=== PATIENT | female | born 1985 | race Caucasian/White ===

== ENCOUNTER 2019-08-04 21:15 | Emergency (ER) | payer OTHER, SELFPAY ==
[2019-08-04 21:15] VITALS: PULSE 156; RESP 26
[2019-08-04] MEDS: SODIUM CHLORIDE 0.9% 1,000 ML 1000 ML IV (21:30)
[2019-08-04] MEDS: ADENOSINE 6 MG/2 ML VIAL IV (21:31)
[2019-08-04] MEDS: ADENOSINE 6 MG/2 ML VIAL 12 MG IV (21:32)
--- NOTE | 2019-08-04 21:37 | ED_ITS ---
HPI - Arrhythmia/Palpitations General Chief Complaint: Chest Pain Stated Complaint: states rapid heart rate Time Seen by Provider: 08/04/19 21:37 Source: patient Mode of arrival: Ambulatory Limitations: no limitations History of Present Illness HPI narrative: The patient was home about 90 minutes prior to arrival. 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 She bent over she had of sudden onset of palpitations. She has a prior history PSVT. PSVT is free of severe resolve a Valsalva maneuvers. She presents here about 9 minutes later, anxious, crying, and complaining of the palpitations and chest discomfort. She has no recent fever chills. 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 She is on no blood pressure cardiac medications. She does not drink alcohol, use tobacco or drugs. She is not . She denies recent illness. She is otherwise healthy. Related Data Allergies Allergy/AdvReac Type Severity Reaction Status Date / Time No Known Drug Allergies Allergy Verified 08/04/19 21:38 Review of Systems Review of Systems ROS Unobtainable: All systems reviewed & are unremarkable except as noted in HPI and below Constitutional Constitutional: Denies chills, Denies fever(s) and Denies night sweats Comments: No recent illness ENT Ears, Nose, Mouth, and Throat: Denies dizziness Comments: No sore throat or difficulty swallowing. Cardiovascular Cardiovascular: Reports chest pain, Denies pedal edema, Reports irregular heart rhythm and Reports dyspnea Respiratory Respiratory: Denies chest congestion, Denies cough, Denies hemoptysis and Reports dyspnea Gastrointestinal Gastrointestinal: Denies abdominal pain, Denies nausea and Denies vomiting Genitourinary Comments: She is not Musculoskeletal Musculoskeletal: Denies back pain Integumentary/Breasts Skin/Breast: Denies erythema and Denies rash Neurologic Neurologic: Denies dizziness Patient History Medical History (Updated 08/04/19 @ 22:21 by Mauricio Vaca MD) Paroxysmal supraventricular tachycardia (Inactive) Surgical History (Updated 08/04/19 @ 22:21 by Mauricio Vaca MD) No significant past surgical history (Acute) Social History Smoking Status: Never smoker Exam Initial Vital Signs Initial Vital Signs: Vital Signs Pulse Rate 156 H 08/04/19 21:15 Respiratory Rate 26 H 08/04/19 21:15 Const General: cooperative and well developed Nutritional Appearance: well nourished Other: Anxious. HENMT Mouth: oral mucosae normal Throat: posterior oropharynx normal and uvula midline Neck Neck: normal visual inspection Resp Auscultation: clear to auscultation bilaterally Cardio Rate: tachycardic Rhythm: regular rhythm Heart Sounds: no click, no gallops, no murmurs and no rubs GI Inspection: non-distended Palpation: soft, no hepatosplenomegaly, No guarding, No pulsatile mass and No tender Auscultation: normal bowel sounds Back/Spine/Pelvis Back: No CVA tenderness Skin Lesions: no lesions Rashes: no rashes Neuro General: alert, oriented x3, gait normal and no focal motor deficits Speech: speech normal Motor: muscle tone normal throughout Extrem General: No no pedal edema and No no calf tenderness Psych Affect: anxious affect Course Course Course Narrative: The patient presents with PSVT, rates about 180. She complains of chest discomfort with dyspnea. This has happened to her before. An IV was established, the rhythm was confirmed with a 12 lead EKG. IV fluids were started. Adenocard 6 mg IV was given, there is no effect. The Adenocard was repeated at 12 mg. she converted to sinus tachycardia. Her rhythm progressively improved to 90s, normal sinus rhythm. She is asymptomatic. Chest x-ray labs are benign other anemia. 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 I have also advised she see her primary care doctor about anemia. Orders Ordered: ED Orders 08/04/19 21:35 Basic Metabolic Panel Stat Complete Blood Count AUTO DIFF Stat Magnesium Stat Troponin & CK Cardiac Panel Stat 08/04/19 21:38 XR chest 1V Stat EKG-12 Lead Stat Sodium Chloride (Normal Saline 0.9%) 1,000 mls @ 1,000 mls/hr IV BOLUS ONE Stop: 08/04/19 22:36 Discontinued Medications Adenosine (Adenocard) 6 mg IV NOW ONE Stop: 08/04/19 21:38 Last Admin: 08/04/19 21:31 Dose: 6 mg Documented by: ENA Adenosine (Adenocard) 12 mg IV NOW ONE Stop: 08/04/19 21:38 Last Admin: 08/04/19 21:32 Dose: 12 mg Documented by: ENA Vital Signs Vital signs: Vital Signs - 8 hr 08/04/19 21:15 08/04/19 21:40 Temperature 98.3 F Pulse Rate 156 H 119 H Respiratory Rate 26 H 20 Blood Pressure [Left Arm] 139/91 H Pulse Oximetry 99 MDM - Arrhythmia/Palpitations Lab Data Result diagrams: 08/04/19 21:35 08/04/19 21:35 Labs: Lab Results 08/04/19 08/04/19 Range/Units 21:35 21:35 WBC 13.7 H (4.5-11.0) X10^3/uL RBC 4.32 (4.0-5.2) X10^6/uL Hgb 10.3 L (12.0-16.0) g/dL Hct 32.9 L (36-46) % MCV 76.1 L (80-100) fL MCH 23.7 L (26-34) PG MCHC 31.2 (30-36) % RDW 16.0 H (11.6-14.8) % Plt Count 387 (150-400) X10^3/uL Neut % (Auto) 66.1 (50-75) % Lymph % (Auto) 25.0 (25-40) % Castro % (Auto) 7.7 (3-14) % Eos % (Auto) 0.7 L (2-4) % Baso % (Auto) 0.5 (0-2) % Neut # (Auto) 9000 H (3436-6346) /uL Lymph # (Auto) 3400 (2981-3307) /uL Castro # (Auto) 1100 H (0-900) /uL Eos # (Auto) 100 (0-450) /uL Baso # (Auto) 100 (0-100) /uL Sodium 138 (137-145) mmol/L Potassium 3.6 (3.4-5.1) mmol/L Chloride 102 (98-107) mmol/L Carbon Dioxide 27 (22-32) mmol/L BUN 8 (7-17) mg/dL Creatinine 0.70 (0.52-1.04) mg/dL Estimated GFR > 60.0 (>60) mL/min BUN/Creatinine Ratio 11.4 (6-22) Glucose 65 L (70-100) mg/dL Calcium 9.2 (8.4-10.2) mg/dL Magnesium 1.8 (1.6-2.3) mg/dL Total Creatine Kinase 38 (30-135) U/L CK-MB (CK-2) TNP CK-MB (CK-2) Rel Index TNP Troponin I < 0.012 (0.01-0.034) ng/mL Imaging Data Chest x-ray: Radiologist's Impresson: [address] [address] XRay Report Signed Patient: Hilary Duffy MMR#: [id number] : 1985Acct:[id number] Age/Sex: te of Service: 08/04/19 Loc: ED Accession Number: [id number] Procedure: XR chest 1V Ordering Provider: Mauricio Vaca MD PROCEDURE: XR CHEST 1V INDICATIONS: PSVT, CHEST PAIN TECHNIQUE: One view of the chest was acquired. COMPARISON: None. FINDINGS: Surgical changes and devices: None. Incidental note is made of a metallic body ornamentation artifact. Lungs and pleura: Lungs are clear. No pleural effusions or pneumothorax. Mediastinum: Mediastinal contours appear normal. Heart size is normal. Bones and chest wall: No suspicious bony lesions. Overlying soft tissues appear unremarkable. IMPRESSION: No acute cardiopulmonary process is seen. Dictated by: Dick Vazquez M.D. on 08/04/2019 at 21:57 Approved by: Dick Vazquez M.D. on 08/04/2019 at 21:57 Discharge Plan Departure Patient Disposition: Home Clinical Impression: Paroxysmal supraventricular tachycardia, Anemia Instructions: Anemia, DI for Paroxysmal Supraventricular Tachycardia Activity Restrictions/Additional Instructions: If you have recurrence of the rapid heartbeat, return here if necessary. Consider following up with your motorcycle assembler if you have repeated events. Your blood counts are a little low, he of anemia. Follow-up the primary care doctor to discuss treatment, and potential other studies.
[2019-08-04 21:40] VITALS: BP 139/91; PULSE 119; RESP 20; TEMP 36.8; O2SAT 99
[2019-08-04 21:44] LABS: Add Manual Diff / Slide Review NO; Basophils Absolute Auto 100 /uL (0-100); Basophils Percent Auto 0.5 % (0-2); Eosinophils Absolute Auto 100 /uL (0-450); Eosinophils Percent Auto 0.7 % (2-4); Hematocrit 32.9 % (36-46); Hemoglobin 10.3 g/dL (12.0-16.0); Lymphocytes Absolute Auto 3400 /uL (1100-4500); Mean Corpuscular HGB Conc 31.2 % (30-36); Mean Corpuscular Hemoglobin 23.7 PG (26-34); Mean Corpuscular Volume 76.1 fL (80-100); Monocytes Absolute Auto 1100 /uL (0-900); Monocytes Percent Auto 7.7 % (3-14); Neutrophils Absolute Auto 9000 /uL (1500-7000); Neutrophils Percent Auto 66.1 % (50-75); Platelet Count 387 X10^3/uL (150-400); Red Blood Cell Count 4.32 X10^6/uL (4.0-5.2); White Blood Cell Count 13.7 X10^3/uL (4.5-11.0)
[2019-08-04 21:55] LABS: BUN Creatinine Ratio 11.4 (6-22); Blood Urea Nitrogen 8 mg/dL (7-17); Calcium 9.2 mg/dL (8.4-10.2); Carbon Dioxide 27 mmol/L (22-32); Chloride 102 mmol/L (98-107); Creatine Kinase 38 U/L (30-135); Estimated Glomerular Filt Rate > 60.0 mL/min (>60); Glucose 65 mg/dL (70-100); HEMOLYSIS < 15 (0-50); Magnesium 1.8 mg/dL (1.6-2.3); Potassium 3.6 mmol/L (3.4-5.1); Sodium 138 mmol/L (137-145)
[2019-08-04 22:07] LABS: Troponin I < 0.012 ng/mL (0.01-0.034)
[2019-08-04 22:34] VITALS: BP 129/85; PULSE 104; RESP 20; O2SAT 99
--- NOTE | 2019-08-30 22:07 | PC.NURSE ---
Late entry: IV NS 1000mL finished infusing stop time 2230 hrs.
--- NOTE | 2019-09-18 14:07 | PC.NURSE ---
Late entry: IV NS 1000 ml bolus complete at 2230 hrs.
== END 2019-08-04 22:58 | disposition home or self-care (01) ==
PROVIDERS: Emergency Provider Emergency Medicine
DX: I47.1 Supraventricular tachycardia (principal); D64.9 Anemia, unspecified; R06.00 Dyspnea, unspecified
CPT/HCPCS: 36415; 71045; 80048; 82550; 83735; 84484; 85025; 93005; 96361; 96374; 99284; J0153

== ENCOUNTER 2020-08-19 11:12 | Emergency (ER) | payer OTHER, SELFPAY ==
[2020-08-19 11:23] VITALS: BP 133/86; PULSE 102; RESP 16; TEMP 36.4; O2SAT 96
[2020-08-19 11:45] LABS: Amorphous Sediment Urine 2+; Bacteria Urine Moderate (10-30); RBC Urine 1-5/HPF (0-5/HPF); WBC Urine 5-10/HPF (0-5/HPF)
[2020-08-19 11:46] LABS: Culture Indicated Urine Specimen Cultured
[2020-08-19] MEDS: KETOROLAC 60 MG/2 ML VIAL 30 MG IM (11:52)
--- NOTE | 2020-08-19 12:04 | ED.FEMALEGU ---
HPI - Female Genitourinary <JARVIS Ramires - Last Filed: 08/19/20 16:16> General Chief complaint: Urogenital-Female Stated complaint: possible kidney infection Time Seen by Provider: 08/19/20 11:22 Source: patient Mode of arrival: Ambulatory History of Present Illness HPI Narrative: 34yo female presents to the ED for concerns about a kidney infection. Patient states she has had intermittent dysuria and increased urinary frequency over the past month. She had tried drinking lots of water and taking cranberry juice but the symptoms have continued. Over the past 2-3 days she developed pain in her back, worse on left than the right. Patient is concerned she might have a kidney infection. She denies any fevers, chills, vomiting, diarrhea, chest pain, shortness of breath, or any other concerns. She denies taking any antibiotics in the past month. Denies any major medical issues. Patient states she has a history of tachycardia. Related Data Previous Rx's Medication Instructions Recorded cefpodoxime 200 mg PO BID 14 Days #28 tab 08/19/20 Allergies Allergy/AdvReac Type Severity Reaction Status Date / Time No Known Drug Allergies Allergy Verified 08/04/19 21:38 Review of Systems <JARVIS Ramires - Last Filed: 08/19/20 16:16> Review of Systems Narrative: REVIEW OF SYSTEMS: GENERAL: Denies fever. HENT: No head trauma. CARDIOVASCULAR: No chest pain. RESPIRATORY: No shortness of breath or cough. GASTROINTESTINAL: Reports intermittent nausea, see HPI. GENITOURINARY: Reports flank pain and dysuria, see HPI. Denies STI concerns. MUSCULOSKELETAL: No pain. INTEGUMENTARY: No rash. Patient History <JARVIS Ramires - Last Filed: 08/19/20 16:16> Medical History (Updated 08/19/20 @ 12:09 by JARVIS Ramires) Paroxysmal supraventricular tachycardia Surgical History (Updated 08/04/19 @ 22:21 by Mauricio Vaca MD) No significant past surgical history alcohol intake frequency: other Alcohol type: beer Last Alcoholic Drink: none Substance Use Type: does not use Exam <JARVIS Ramires - Last Filed: 08/19/20 16:16> Initial Vital Signs Initial Vital Signs: Vital Signs Temperature 97.5 F L 08/19/20 11:23 Pulse Rate 102 H 08/19/20 11:23 Respiratory Rate 16 08/19/20 11:23 Blood Pressure 133/86 08/19/20 11:23 Pulse Oximetry 96 08/19/20 11:23 PHYSICAL EXAMINATION: GENERAL: Awake and alert. HENT: Normocephalic, atraumatic. Hearing intact. Oral mucosa is pink and moist. EYES: Conjunctiva pink, sclera white, no periorbital swelling. CARDIOVASCULAR: S1 and S2 sounds normal. Regular rate and rhythm, no murmurs, clicks, or bruits. No pedal edema. RESPIRATORY: Normal respiratory rate, trachea midline, airway patent. No stridor, nasal flaring or accessory muscle use. Lungs are clear in all long without wheeze, rhonchi, or crackles. GASTROINTESTINAL: Bowel sounds normoactive. Abdomen is soft and non-tender. No organomegaly, no palpable masses. GENITALURINARY: Bilateral CVA tenderness, significantly worse on left than right. MUSCULOSKELETAL: Normal gait and coordination. Equal tone and mass bilaterally. EXTREMITIES: CMS intact. SKIN: Warm, dry, soft, appropriate color for ethnicity. No lesions, rashes, or wounds to visualized areas. NEURO: Alert and Oriented X 3. Good coordination. PSYCH: Appropriate affect and mood. <Rubia Whitaker DO - Last Filed: 08/20/20 08:03> Initial Vital Signs Initial Vital Signs: Vital Signs Temperature 97.5 F L 08/19/20 11:23 Pulse Rate 102 H 08/19/20 11:23 Respiratory Rate 16 08/19/20 11:23 Blood Pressure 133/86 08/19/20 11:23 Pulse Oximetry 96 08/19/20 11:23 Course <JARVIS Ramires - Last Filed: 08/19/20 16:16> Course Course Narrative: Patient reports pain relief after Toradol administration. Orders Ordered: Discontinued Medications Ketorolac Tromethamine (Ketorolac 60 Mg/2 Ml Vial) 30 mg IM NOW ONE Stop: 08/19/20 11:35 Last Admin: 08/19/20 11:52 Dose: 30 mg Documented by: GIOVANNI Vital Signs Vital signs: Vital Signs - 8 hr 08/19/20 11:23 08/19/20 12:12 Temperature 97.5 F L Pulse Rate 102 H 106 H Respiratory Rate 16 Blood Pressure 133/86 136/75 Pulse Oximetry 96 100 <Rubia Whitaker DO - Last Filed: 08/20/20 08:03> Orders Ordered: Discontinued Medications Ketorolac Tromethamine (Ketorolac 60 Mg/2 Ml Vial) 30 mg IM NOW ONE Stop: 08/19/20 11:35 Last Admin: 08/19/20 11:52 Dose: 30 mg Documented by: GIOVANNI Vital Signs Vital signs: Vital Signs - 8 hr 08/19/20 11:23 08/19/20 12:12 Temperature 97.5 F L Pulse Rate 102 H 106 H Respiratory Rate 16 Blood Pressure 133/86 136/75 Pulse Oximetry 96 100 MDM - Female Genitourinary <JARVIS Ramires - Last Filed: 08/19/20 16:16> Medical Records Attestation: I reviewed the patient's medical records. Lab Data Attestation: I reviewed the patient's lab results. Labs: Lab Results 08/19/20 Range/Units 11:37 Urine RBC 1-5/hpf (0-5/HPF) Urine WBC 5-10/hpf H (0-5/HPF) Amorphous Sediment 2+ Urine Bacteria Moderate (10-30) H (None) Ur Culture Indicated? Specimen cultured MDM Narrative Medical decision making narrative: History and examination concerning for pyelonephritis given dysuria and CVA tenderness. Patient has bacteria on microscopic study. She was started on cefpodoxime and given Toradol IM in the clinic. Patient does have some tachycardia upon admission. However, she states she has a history of a fast heart rate, upon review of charts her heart rate appears to be 100-110 at baseline. I am less concern for sepsis at this time due to baseline heart rate, patient is afebrile, well-appearing, hemodynamically stable, no history of kidney issues. She is able to eat and drink fluids without any vomiting. She was encouraged to follow up with her PCP in the next 1-2 weeks for further evaluation. Return precautions given for new worsening symptoms. Patient agreed to plan of care verbalized understanding. <Rubia Whitaker DO - Last Filed: 08/20/20 08:03> Lab Data Labs: Lab Results 08/19/20 Range/Units 11:37 Urine RBC 1-5/hpf (0-5/HPF) Urine WBC 5-10/hpf H (0-5/HPF) Amorphous Sediment 2+ Urine Bacteria Moderate (10-30) H (None) Ur Culture Indicated? Specimen cultured Discharge Plan Departure Patient Disposition: Home Clinical Impression: Pyelonephritis Instructions: DI for Kidney Infection Activity Restrictions/Additional Instructions: Thank you for entrusting me with your care today. As discussed, it appears you have a kidney infection. I prescribed you antibiotics, please complete the whole course or the bacteria may return. Drink plenty of water, take small doses of ibuprofen as needed for pain. Return emergency department for any new or worsening symptoms. I do recommend following up with your primary care provider in the next 1-2 weeks for further evaluation. Prescriptions: New cefpodoxime 200 mg tablet 200 mg PO BID 14 Days Qty: 28 RF: 0 <Rubia Whitaker DO - Last Filed: 08/20/20 08:03> Cosign ED Attending Cosignature Attestation: I was immediately available in the department for consultation. Documentation has been reviewed. I agree with assessment and plan.
[2020-08-19 12:12] VITALS: BP 136/75; PULSE 106; O2SAT 100
== END 2020-08-19 12:27 | disposition home or self-care (01) ==
PROVIDERS: Emergency Provider Nurse Practitioner
DX: N12 Tubulo-interstitial nephritis, not specified as acute or chronic (principal)
CPT/HCPCS: 81015; 87077; 87086; 87147; 87186; 96372; 99281; 99283; J1885

== ENCOUNTER 2021-01-24 23:07 | Emergency (ER) | payer OTHER, SELFPAY ==
[2021-01-24 23:10] VITALS: BP 152/84; PULSE 102; RESP 20; TEMP 36.9; O2SAT 99; BMI 18.0
--- NOTE | 2021-01-24 23:16 | ED.GENADULT ---
HPI - General Adult General Chief complaint: Extremity Injury, Upper Stated complaint: LEFT HAND INJURY Time Seen by Provider: 01/24/21 23:12 History of Present Illness HPI narrative: Patient is a 35-year-old female here for evaluation of a left hand/wrist discomfort. She states that 3-4 weeks ago she slipped and fell in her bathtub landing on her left wrist. He states she has had some discomfort since then but has been able to move it around. 2-3 days ago she was folding some laundry and as she was shaking on the laundry she had increasing pain in her left wrist. She does have a home wrist brace that she has been using without much improvement. Related Data Allergies Allergy/AdvReac Type Severity Reaction Status Date / Time No Known Drug Allergies Allergy Verified 08/04/19 21:38 Review of Systems Musculoskeletal Comments: Left wrist/hand pain Integumentary/Breasts Comments: No bruising Neurologic Comments: No tingling Hematologic/Lymphatic On Anticoagulants: No Patient History Medical History Paroxysmal supraventricular tachycardia Surgical History (Updated 08/04/19 @ 22:21 by Mauricio Vaca MD) No significant past surgical history Social History Smoking Status: Never smoker Smoking Status: Never smoker alcohol intake frequency: other Alcohol type: beer Substance Use Type: does not use Exam Initial Vital Signs Initial Vital Signs: Vital Signs Temperature 98.4 F 01/24/21 23:10 Pulse Rate 102 H 01/24/21 23:10 Respiratory Rate 20 01/24/21 23:10 Blood Pressure 152/84 H 01/24/21 23:10 Pulse Oximetry 99 01/24/21 23:10 HENIA Head: normal to inspection and normocephalic Cardio Pulses: radial pulses present on the left Skin General: no rashes or lesions noted Neuro Sensory Exam: no sensory deficits noted Extrem Other: Left shoulder left elbow unremarkable. Patient has tenderness to palpation of the ulnar styloid of the left wrist. She also has tenderness along the distal radius as well. He can pronate and supinate. Procedures Orthopedic Splinting/Casting Injury #1: Side: left Upper Extremity Injury Location: wrist Upper Extremity Immobilizer: thumb spica Post splinting neuro exam: intact Post splinting vascular exam: intact Placed by: Nursing Course Orders Ordered: ED Orders 01/24/21 23:17 XR wrist LT min 3V Stat Vital Signs Vital signs: Vital Signs - 8 hr 01/24/21 23:10 01/25/21 00:32 Temperature 98.4 F Pulse Rate 102 H 91 H Respiratory Rate 20 19 Blood Pressure 152/84 H 130/77 Pulse Oximetry 99 99 Medical Decision Making Imaging Data Extremity x-ray #1: Radiologist's Impression: No acute process MDM Narrative Medical decision making narrative: No fractures on the x-ray, neurovascularly intact, has been several weeks since the initial injury. Afebrile. Will hold on further workup for now. She was given a removable wrist splint for her comfort and instructed that she needed to contact her primary doctor for a follow-up if her symptoms do not improve to discuss further workup. She expressed understanding and agreement. Discharge Plan Departure Patient Disposition: Home Clinical Impression: Left wrist sprain Instructions: DI for Wrist Sprain, How To Perform RICE (Rest, Ice, Compress, Elevate) Activity Restrictions/Additional Instructions: The x-ray did not show any signs of a fracture. The wrist splint that you were given today is for your comfort. You can take it off to shower and wash your hands. I recommend that you contact your primary doctor for a follow-up as you may need a referral to see Orthopedics if your symptoms do not improve.
--- NOTE | 2021-01-24 23:17 | DI.RAD.S_ITS ---
PROCEDURE: XR WRIST LT MIN 3V INDICATIONS: pain after fall TECHNIQUE: 4 views of the wrist were acquired. COMPARISON: None. FINDINGS: Bones: No fractures or dislocations. No suspicious bony lesions. Scaphoid view: Scaphoid is intact. Soft tissues: No suspicious soft tissue calcifications. IMPRESSION: No fracture. No osseous lesion. If symptoms and/or clinical suspicion for pathology persists, further assessment with repeat radiographs (7-10 days) or advanced imaging (e.g. CT, MRI or bone scan) should be considered. Dictated by: Paula Chris MD, PhD on 01/25/2021 at 8:53 Approved by: Paula Chris MD, PhD on 01/25/2021 at 8:53
[2021-01-25 00:32] VITALS: BP 130/77; PULSE 91; RESP 19; O2SAT 99
== END 2021-01-25 00:32 | disposition home or self-care (01) ==
PROVIDERS: Emergency Provider Emergency Medicine
DX: S63.502A Unspecified sprain of left wrist, initial encounter (principal); W18.2XXA Fall in (into) shower or empty bathtub, initial encounter
CPT/HCPCS: 73110; 99283

== ENCOUNTER 2021-02-08 16:04 | Emergency (ER) | payer OTHER, SELFPAY ==
[2021-02-08 16:15] VITALS: BP 121/75; PULSE 123; RESP 18; O2SAT 100; BMI 18.0
--- NOTE | 2021-02-08 16:19 | DI.RAD.S_ITS ---
PROCEDURE: XR CHEST 1V INDICATIONS: chest pain TECHNIQUE: One view of the chest was acquired. COMPARISON: [facility], CR, XR CHEST 1V, 08/04/2019, 21:43. FINDINGS: Surgical changes and devices: Incidental note is made of a metallic body ornamentation artifact. Lungs and pleura: Lungs are clear. No pleural effusions or pneumothorax. Mediastinum: Mediastinal contours appear normal. Heart size is normal. Bones and chest wall: No suspicious bony lesions. Overlying soft tissues appear unremarkable. IMPRESSION: Unremarkable single-view chest. Dictated by: Dick Vazquez M.D. on 02/08/2021 at 15:54 Approved by: Dick Vazquez M.D. on 02/08/2021 at 15:54
[2021-02-08 16:31] VITALS: BP 121/82; PULSE 116; RESP 20; O2SAT 100
[2021-02-08 16:33] VITALS: BP 118/84; PULSE 116; RESP 20; O2SAT 100
--- NOTE | 2021-02-08 16:35 | ED.ARRPALP ---
HPI - Arrhythmia/Palpitations General Chief Complaint: Arrhythmia/Palpitations Stated Complaint: states is in A Fib Time Seen by Provider: 02/08/21 16:25 Source: patient Mode of arrival: Ambulatory Limitations: no limitations History of Present Illness HPI narrative: Patient is a 35-year-old female. States she has a history of SVT. Is not currently on any medications. She states that at least 1 time a month she gets symptoms especially when she bends over than stands up again where her heart rate is beating fast. She states that this happened today. The maneuvers that she does at home to try to stop the symptoms did not work for her so she came in to be evaluated. By the time she arrived here to the emergency department/exam room she stated that her symptoms have resolved. She has received adenosine in the past. She stated that she did not like the way that it made her feel. She has been on beta-blockers in the past but she states that they do not work for her. She has not seen a sap abap developer in 2 years. Related Data Allergies Allergy/AdvReac Type Severity Reaction Status Date / Time No Known Drug Allergies Allergy Verified 08/04/19 21:38 Review of Systems Constitutional Constitutional: Denies fever(s) Cardiovascular Cardiovascular: Denies chest pain, Reports rapid heart rate and Denies dyspnea Respiratory Respiratory: Denies dyspnea Gastrointestinal Gastrointestinal: Reports system reviewed and no additional complaints, except as documented Musculoskeletal Musculoskeletal: Reports system reviewed and no additional complaints, except as documented Integumentary/Breasts Skin/Breast: Reports system reviewed and no additional complaints, except as documented Neurologic Neurologic: Reports system reviewed and no additional complaints, except as documented Hematologic/Lymphatic On Anticoagulants: No Allergic/Immunologic Allergic/Immunologic: Reports system reviewed and no additional complaints, except as documented Patient History Medical History Paroxysmal supraventricular tachycardia Surgical History (Updated 08/04/19 @ 22:21 by Mauricio Vaca MD) No significant past surgical history Social History Smoking Status: Never smoker Smoking Status: Never smoker alcohol intake frequency: other Alcohol type: beer Substance Use Type: does not use Exam Initial Vital Signs Initial Vital Signs: Vital Signs Pulse Rate 123 H 02/08/21 16:15 Respiratory Rate 18 02/08/21 16:15 Blood Pressure 121/75 02/08/21 16:15 Pulse Oximetry 100 02/08/21 16:15 Const General: cooperative, healthy appearing and comfortable HENCO Head: normal to inspection and normocephalic Eyes General: appearance normal, both eyes and all related structures Neck Neck: normal visual inspection Resp Effort & Inspection: normal respiratory effort Auscultation: clear to auscultation bilaterally Cardio Rate: tachycardic Rhythm: regular rhythm GI Inspection: normal to inspection Skin General: no rashes or lesions noted Neuro General: patient alert, patient awake, patient oriented x3 and moves all extremities Extrem General: normal to inspection, capillary refill normal and No edema Psych Appearance: grossly normal Course Orders Ordered: ED Orders 02/08/21 16:19 XR chest 1V Stat EKG-12 Lead Stat 02/08/21 16:30 Complete Blood Count AUTO DIFF Stat Comprehensive Metabolic Panel Stat Lipase Stat Magnesium Stat Test Serum,Qual Stat Thyroid Stimulating Hormone Stat Troponin & CK Cardiac Panel Stat Vital Signs Vital signs: Vital Signs - 8 hr 02/08/21 16:15 02/08/21 16:31 02/08/21 16:33 Pulse Rate 123 H 116 H 116 H Respiratory Rate 18 20 20 Blood Pressure 121/75 121/82 118/84 Pulse Oximetry 100 100 100 02/08/21 17:00 02/08/21 17:30 Pulse Rate 109 H 92 H Respiratory Rate 20 17 Blood Pressure 131/91 H 120/85 Pulse Oximetry 100 100 MDM - Arrhythmia/Palpitations Lab Data Attestation: I reviewed the patient's lab results. Result diagrams: 02/08/21 16:30 02/08/21 16:30 Labs: Lab Results 02/08/21 02/08/21 02/08/21 Range/Units 16:30 16:30 16:30 WBC 10.8 (4.5-11.0) X10^3/uL RBC 4.75 (4.0-5.2) X10^6/uL Hgb 13.0 (12.0-16.0) g/dL Hct 39.3 (36-46) % MCV 82.8 (80-100) fL MCH 27.5 (26-34) PG MCHC 33.2 (30-36) % RDW 14.2 (11.6-14.8) % Plt Count 388 (150-400) X10^3/uL Neut % (Auto) 67.9 (50-75) % Lymph % (Auto) 25.4 (25-40) % [place] % (Auto) 5.7 (3-14) % Eos % (Auto) 0.1 L (2-4) % Baso % (Auto) 0.9 (0-2) % Neut # (Auto) 7300 H (7810-9265) /uL Lymph # (Auto) 2700 (6942-1844) /uL [place] # (Auto) 600 (0-900) /uL Eos # (Auto) 0 (0-450) /uL Baso # (Auto) 100 (0-100) /uL Sodium 139 (137-145) mmol/L Potassium 3.9 (3.4-5.1) mmol/L Chloride 104 (98-107) mmol/L Carbon Dioxide 26 (22-32) mmol/L BUN 10 (7-17) mg/dL Creatinine 0.75 (0.52-1.04) mg/dL Estimated GFR > 60.0 (>60) mL/min BUN/Creatinine Ratio 13.3 (6-22) Glucose 99 (70-100) mg/dL Calcium 9.4 (8.4-10.2) mg/dL Magnesium 1.9 (1.6-2.3) mg/dL Total Bilirubin 0.4 (0.2-1.3) mg/dL AST 35 (14-36) IU/L ALT 23 (<35) IU/L Alkaline Phosphatase 58 (38-126) U/L Total Creatine Kinase 76 (30-135) U/L CK-MB (CK-2) TNP CK-MB (CK-2) Rel Index TNP Troponin I < 0.012 (0.01-0.034) ng/mL Total Protein 8.2 (6.3-8.2) g/dL Albumin 4.4 (3.5-5.0) g/dL Globulin 3.8 (1.7-4.1) g/dL Albumin/Globulin Ratio 1.2 (1.0-2.8) Lipase 136 (23-300) U/L TSH (0.47-4.68) uIU/mL Serum , Qual (Negative) 02/08/21 02/08/21 Range/Units 16:30 16:30 WBC (4.5-11.0) X10^3/uL RBC (4.0-5.2) X10^6/uL Hgb (12.0-16.0) g/dL Hct (36-46) % MCV (80-100) fL MCH (26-34) PG MCHC (30-36) % RDW (11.6-14.8) % Plt Count (150-400) X10^3/uL Neut % (Auto) (50-75) % Lymph % (Auto) (25-40) % [place] % (Auto) (3-14) % Eos % (Auto) (2-4) % Baso % (Auto) (0-2) % Neut # (Auto) (8158-5272) /uL Lymph # (Auto) (2646-4293) /uL [place] # (Auto) (0-900) /uL Eos # (Auto) (0-450) /uL Baso # (Auto) (0-100) /uL Sodium (137-145) mmol/L Potassium (3.4-5.1) mmol/L Chloride (98-107) mmol/L Carbon Dioxide (22-32) mmol/L BUN (7-17) mg/dL Creatinine (0.52-1.04) mg/dL Estimated GFR (>60) mL/min BUN/Creatinine Ratio (6-22) Glucose (70-100) mg/dL Calcium (8.4-10.2) mg/dL Magnesium (1.6-2.3) mg/dL Total Bilirubin (0.2-1.3) mg/dL AST (14-36) IU/L ALT (<35) IU/L Alkaline Phosphatase (38-126) U/L Total Creatine Kinase (30-135) U/L CK-MB (CK-2) CK-MB (CK-2) Rel Index Troponin I (0.01-0.034) ng/mL Total Protein (6.3-8.2) g/dL Albumin (3.5-5.0) g/dL Globulin (1.7-4.1) g/dL Albumin/Globulin Ratio (1.0-2.8) Lipase (23-300) U/L TSH 1.51 (0.47-4.68) uIU/mL Serum , Qual Negative (Negative) ECG Data Attestation: I personally reviewed and interpreted this ECG as follows: Interpretation: Sinus tachycardia Ventricular rate 121 Normal QRS Normal QTC Normal axis No ST T wave changes MDM Narrative Medical decision making narrative: Patient states she is feeling much better since arrival here to the ER. Her labs are unremarkable. She states that when of this type of event happens normally when it ?breaks ?she is tachycardic for short period of time but this improves with time. Patient did fall asleep in her heart rate did drop to the 80s and 90s. She has been in sinus rhythm during her entire time here in the ER. Afebrile. Informed her that she needed to contact her primary doctor/sap abap developer for a follow-up. She was given return precautions. She expressed understanding and agreement. Discharge Plan Departure Patient Disposition: Home Clinical Impression: Supraventricular tachycardia Instructions: DI for Paroxysmal Supraventricular Tachycardia Activity Restrictions/Additional Instructions: I do recommend that you may contact with your sap abap developer to discuss potential further changes/medications to help prevent her symptoms from reoccurring. Also contact your primary doctor for follow-up. Return to the emergency department for any new or worsening symptoms
[2021-02-08 16:46] LABS: Add Manual Diff / Slide Review NO; Basophils Absolute Auto 100 /uL (0-100); Basophils Percent Auto 0.9 % (0-2); Eosinophils Absolute Auto 0 /uL (0-450); Eosinophils Percent Auto 0.1 % (2-4); Hematocrit 39.3 % (36-46); Lymphocytes Absolute Auto 2700 /uL (1100-4500); Lymphocytes Percent Auto 25.4 % (25-40); Mean Corpuscular HGB Conc 33.2 % (30-36); Mean Corpuscular Hemoglobin 27.5 PG (26-34); Mean Corpuscular Volume 82.8 fL (80-100); Monocytes Absolute Auto 600 /uL (0-900); Monocytes Percent Auto 5.7 % (3-14); Neutrophils Absolute Auto 7300 /uL (1500-7000); Neutrophils Percent Auto 67.9 % (50-75); Platelet Count 388 X10^3/uL (150-400); Red Blood Cell Count 4.75 X10^6/uL (4.0-5.2); Red Cell Distribution Width 14.2 % (11.6-14.8); White Blood Cell Count 10.8 X10^3/uL (4.5-11.0)
[2021-02-08 17:00] VITALS: BP 131/91; PULSE 109; RESP 20; O2SAT 100
[2021-02-08 17:04] LABS: Pregnancy Test Serum,Qual Negative (Negative)
[2021-02-08 17:07] LABS: Alanine Aminotransferase 23 IU/L (<35); Albumin 4.4 g/dL (3.5-5.0); Albumin Globulin Ratio 1.2 (1.0-2.8); Alkaline Phosphatase 58 U/L (38-126); Aspartate Aminotransferase 35 IU/L (14-36); BUN Creatinine Ratio 13.3 (6-22); Bilirubin Total 0.4 mg/dL (0.2-1.3); Blood Urea Nitrogen 10 mg/dL (7-17); Calcium 9.4 mg/dL (8.4-10.2); Carbon Dioxide 26 mmol/L (22-32); Chloride 104 mmol/L (98-107); Creatine Kinase 76 U/L (30-135); Estimated Glomerular Filt Rate > 60.0 mL/min (>60); Globulin 3.8 g/dL (1.7-4.1); Glucose 99 mg/dL (70-100); HEMOLYSIS 54 (0-50); Lipase 136 U/L (23-300); Magnesium 1.9 mg/dL (1.6-2.3); Potassium 3.9 mmol/L (3.4-5.1); Sodium 139 mmol/L (137-145); Total Protein 8.2 g/dL (6.3-8.2)
[2021-02-08 17:18] LABS: Troponin I < 0.012 ng/mL (0.01-0.034)
[2021-02-08 17:30] VITALS: BP 120/85; PULSE 92; RESP 17; O2SAT 100
[2021-02-08 17:38] LABS: Thyroid Stimulating Hormone 1.51 uIU/mL (0.47-4.68)
== END 2021-02-08 17:57 | disposition home or self-care (01) ==
PROVIDERS: Emergency Provider Emergency Medicine
DX: I47.1 Supraventricular tachycardia (principal)
CPT/HCPCS: 36415; 71045; 80053; 82550; 83690; 83735; 84443; 84484; 84703; 85025; 93005; 99283; 99284

== ENCOUNTER 2021-03-27 11:45 | Emergency (ER) | payer OTHER, SELFPAY ==
[2021-03-27 11:56] VITALS: BP 134/78; PULSE 76; RESP 16; TEMP 37.1; O2SAT 100; BMI 18.1
--- NOTE | 2021-03-27 12:04 | DI.RAD.S_ITS ---
PROCEDURE: XR HAND LT MIN 3V INDICATIONS: injury TECHNIQUE: 3 views of the hand(s) acquired. COMPARISON: None. FINDINGS: Bones: No fractures or dislocations. Carpal bones are normally aligned. No suspicious bony lesions. Soft tissues: No suspicious soft tissue calcifications. IMPRESSION: No displaced fractures are seen on these plain films. If there is focal tenderness, or other clinical concern for a fracture not seen on these images in this patient with a given history of trauma, please consider a dedicated CT or a short-term followup plain film series (in 1-2 weeks) for further evaluation. Dictated by: Dick Vazquez M.D. on 03/27/2021 at 11:40 Approved by: Dick Vazquez M.D. on 03/27/2021 at 11:41
--- NOTE | 2021-03-27 12:57 | ED_ITS ---
HPI - Extremity Injury (Upper) <JARVIS Stroud - Last Filed: 03/27/21 15:19> General Chief Complaint: Extremity Injury, Upper Stated Complaint: LT HAND INJURY Time Seen by Provider: 03/27/21 12:10 Source: patient Mode of arrival: Ambulatory Limitations: no limitations History of Present Illness HPI narrative: 35-year-old right-handed female presents to the ED for left hand pain that occurred while she was doing a handstand, she reports she felt a pop and then off we did it and it has been hurting ever since. She endorses that she injured this same hand in the same area over her 4th and 5th metacarpal a couple weeks ago and was supposed to follow-up with orthopedics but didn't. She is able to move her hand, flex her wrist, extend her wrist, she denies any wrist pain or elbow pain, she is able to flex and extend all of her fingers. There is a small contusion over her 4th and 5th metacarpals. She denies any previous fractures in this hand. Related Data Allergies Allergy/AdvReac Type Severity Reaction Status Date / Time No Known Drug Allergies Allergy Verified 08/04/19 21:38 Review of Systems <JARVIS Stroud - Last Filed: 03/27/21 15:19> Review of Systems Narrative: General: denies fever, chills Head/Neck: denies headache, neck pain Eyes: denies visual changes, eye pain Cardio: denies chest pain, palpitations Respiratory: denies shortness of breath, cough GI: denies abdominal pain, nausea, vomiting, or diarrhea : denies dysuria, hematuria MSK: denies joint pain, muscle weakness, complains of left hand pain with any touch or movement Skin: denies rash, itching Neuro: denies numbness, tingling Patient History <JARVIS Stroud - Last Filed: 03/27/21 15:19> Medical History Paroxysmal supraventricular tachycardia Surgical History No significant past surgical history Social History Smoking Status: Never smoker Smoking Status: Never smoker alcohol intake frequency: other Alcohol type: beer Substance Use Type: does not use Exam <JARVIS Stroud - Last Filed: 03/27/21 15:19> Narrative Exam Narrative: Independently reviewed vitals signs and nursing notes. General: Awake, alert, nontoxic, no cardiorespiratory distress Head/Neck: Atraumatic, neck full range of motion Eyes: EOMI, conjunctiva normal Nose: nares patent, no rhinorrhea Cardio: Regular rate and rhythm, no peripheral edema Respiratory: respirations unlabored , No retractions. GI: Abdomen soft, nontender MSK: Moves all extremities, neurovascularly intact, able to flex and extend all fingers including abduction and adduction. Point tenderness over middle of 4th metacarpal, not tender to proximal or distal parts of 4th metacarpal. Skin: Normal capillary refill, no rash Neuro: Normal speech and cognition, normal gait Initial Vital Signs Initial Vital Signs: Vital Signs Temperature 98.7 F 03/27/21 11:56 Pulse Rate 76 03/27/21 11:56 Respiratory Rate 16 03/27/21 11:56 Blood Pressure 134/78 03/27/21 11:56 Pulse Oximetry 100 03/27/21 11:56 <Rubia Whitaker DO - Last Filed: 03/27/21 20:00> Initial Vital Signs Initial Vital Signs: Vital Signs Temperature 98.7 F 03/27/21 11:56 Pulse Rate 76 03/27/21 11:56 Respiratory Rate 16 03/27/21 11:56 Blood Pressure 134/78 03/27/21 11:56 Pulse Oximetry 100 03/27/21 11:56 Course <JARVIS Stroud - Last Filed: 03/27/21 15:19> Orders Ordered: ED Orders 03/27/21 12:04 XR hand LT min 3V Stat Vital Signs Vital signs: Vital Signs - 8 hr 03/27/21 11:56 Temperature 98.7 F Pulse Rate 76 Respiratory Rate 16 Blood Pressure 134/78 Pulse Oximetry 100 <Rubia Whitaker DO - Last Filed: 03/27/21 20:00> Orders Ordered: ED Orders 03/27/21 12:04 XR hand LT min 3V Stat Vital Signs Vital signs: Vital Signs - 8 hr 03/27/21 11:56 Temperature 98.7 F Pulse Rate 76 Respiratory Rate 16 Blood Pressure 134/78 Pulse Oximetry 100 [facility] - Extremity Injury (Upper) <Leonor JARVIS Barth - Last Filed: 03/27/21 15:19> Imaging Data Extremity x-ray #1: Radiologist's Impression: PROCEDURE:? XR HAND LT MIN 3V ? INDICATIONS:? injury ? TECHNIQUE:? 3 views of the hand(s) acquired.? ? COMPARISON:? None. ? FINDINGS:? ? Bones:? No fractures or dislocations.? Carpal bones are normally aligned.? No suspicious bony lesions.? ? Soft tissues:? No suspicious soft tissue calcifications.? ? ? IMPRESSION:? ? No displaced fractures are seen on these plain films.? ? If there is focal tenderness, or other clinical concern for a fracture not seen on these images in this patient with a given history of trauma, please consider a dedicated CT or a short-term followup plain film series (in 1-2 weeks) for further evaluation.? ? ? Dictated by: Dick Vazquez M.D. on 03/27/2021 at 11:40 ? ? Approved by: Dick Vazquez M.D. on 03/27/2021 at 11:41 ? [facility] Narrative Medical decision making narrative: 35-year-old right-handed female presents to the ED for left hand pain that occurred while she was doing a handstand, she reports she felt a pop and then off we did it and it has been hurting ever since. Her hand x-ray was negative for fracture today. She has a small contusion on the dorsum of her hand. She has full range of motion in her wrist and her fingers. This is most likely a hand injury with a contusion. She was fitted into a wrist splint for comfort but then reported she had one and didn't need it. Patient is appropriate and amenable to discharge home. Vital signs are stable on repeat examination is unremarkable. Patient has been informed of results. Patient has been given strict return to ER precautions for any new or worsening symptoms. Patient understands to follow up closely with outpatient providers as instructed. Patient understands plan and agrees to discharge home. All questions and concerns answered at this time. Discharge Plan Departure Patient Disposition: Home Clinical Impression: Hand pain, left Instructions: DI for Hand Injury Activity Restrictions/Additional Instructions: *You have been diagnosed with left hand pain after left hand injury. There are no fractures in her hand today, wear splint as long as that is comfortable. If you are still having pain after a week it to be worse following up with your PCP or orthopedics as you discussed. Ibuprofen, Tylenol, and ice therapy will be helpful for your pain. *What to do: *Please continue to take your regular medications as directed. [ ] New medication prescriptions sent to your pharmacy: [ ] [ ] New medication written as a paper prescription [x ] No new medications given *Please follow up with your primary care provider in 2-3 days, call for an appointment. Let them know you were seen in the Emergency Department and that we ask that you be seen in follow up. We will electronically transmit a record of today's note if your PCP is in our system *If you do not have a primary care provider please contact the [facility] Resource line at [phone]. They will ask some questions about your medical history and help get you set up with a doctor in the community. *Return to Emergency Department if you should have any new, worsening or concerning symptoms, such as [fever greater than 101F, chills, worsening pain, persistent vomiting or other bothersome symptoms] <Rubia Whitaker, DO - Last Filed: 03/27/21 20:00> Cosign ED Attending Proature Attestation: I was asked to see and evaluated patient. No significant swelling of the left hand she has a very small bruise on 5th metacarpal area. X-ray is negative. She already is where using a brace. I recommend she continue to use the brace and have a repeat x-ray as an outpatient. I was immediately available in the department for consultation. Documentation has been reviewed. I agree with assessment and plan.
== END 2021-03-27 13:24 | disposition home or self-care (01) ==
PROVIDERS: Emergency Provider Nurse Practitioner Critical Care Medicine
DX: M79.642 Pain in left hand (principal); X58.XXXA Exposure to other specified factors, initial encounter
CPT/HCPCS: 73130; 99283

== ENCOUNTER 2021-06-29 13:55 | Emergency (ER) | payer OTHER, SELFPAY ==
[2021-06-29] VITALS (8 sets, daily range): BP systolic 125–136; BP diastolic 86–94; PULSE 99–195; RESP 15–23; TEMP 36.9; O2SAT 95–100; BMI 18.8
--- NOTE | 2021-06-29 14:17 | ED_ITS ---
HPI - General Adult General Chief complaint: Arrhythmia/Palpitations Stated complaint: Tachychardia Time Seen by Provider: 06/29/21 14:10 History of Present Illness HPI narrative: 35-year-old woman with a history of recurrent episodes of SVT presents in SVT. She noted the rhythm at approximately 10:00 a.m. this morning. She tried all the usual maneuvers that have been successful previously and after 4 hours she was beginning to feel more fatigued with a bit of left chest pain radiating to her left scapula so she came to the ER for further evaluation and definitive treatment. She describes no recent fever, cough, chills, abdominal pain, chest pain, diarrhea, vomiting, abdominal pain, lower extremity edema. She has not changed any medications eaten any new foods nor used any significant stimulants including caffeine. Related Data Allergies Allergy/AdvReac Type Severity Reaction Status Date / Time No Known Drug Allergies Allergy Verified 08/04/19 21:38 Review of Systems Review of Systems Narrative: Remainder of complete review of systems is otherwise unremarkable except for that included in the HPI. Patient History Medical History Paroxysmal supraventricular tachycardia Surgical History No significant past surgical history Social History Smoking Status: Never smoker Smoking Status: Never smoker alcohol intake frequency: other Alcohol type: beer Substance Use Type: does not use Exam Narrative Exam Narrative: General: Healthy appearing, in no acute distress. Able to give a complete and coherent history. Well-nourished well-developed HEENT: Moist mucous membranes, normal sclera with reactive pupils, slightly flushed Neck: No JVD, supple Respiratory: Lungs are clear to auscultation, no wheezing no rales no rhonchi. Full and symmetrical air movement Cardiac: Very rapid rate Abdomen: Soft, nontender, good bowel tones, no flank pain Skin: Warm and dry, no rashes Neurologic: Grossly neurologically intact with no obvious asymmetries or abnormalities Extremities: No trauma, well perfused Psych: Cooperative, appropriate insight and affect Initial Vital Signs Initial Vital Signs: Vital Signs Temperature 98.4 F 06/29/21 13:59 Pulse Rate 195 H 06/29/21 13:59 Respiratory Rate 16 06/29/21 13:59 Blood Pressure 135/94 H 06/29/21 13:59 Pulse Oximetry 95 06/29/21 13:59 Course Course Course Narrative: 35-year-old woman presents with very rapid heart rate initial EKG shows supraventricular tachycardia at a rate of 193. She states that usually laying on her left side and coughing will help her convert she was unable to convert home. In the emergency department she is given 6 mg of IV adenosine with legs rapidly raised same time. She converted to a sinus tachycardia at the 140 range that continued to come down to the 10 range as her anxiety decreased. Orders Ordered: ED Orders 06/29/21 14:10 Complete Blood Count AUTO DIFF Stat Comprehensive Metabolic Panel Stat Troponin I Stat Vital Signs Vital signs: Vital Signs - 8 hr 06/29/21 13:59 06/29/21 14:10 06/29/21 14:15 Temperature 98.4 F Pulse Rate 195 H 181 H 124 H Respiratory Rate 16 15 20 Blood Pressure 135/94 H 136/86 Pulse Oximetry 95 100 06/29/21 14:30 06/29/21 15:00 06/29/21 15:30 Temperature Pulse Rate 110 H 108 H 110 H Respiratory Rate 23 23 21 Blood Pressure 136/89 Pulse Oximetry 100 100 100 06/29/21 16:00 06/29/21 16:30 Temperature Pulse Rate 107 H 99 H Respiratory Rate 19 18 Blood Pressure 134/90 125/91 H Pulse Oximetry 100 100 Medical Decision Making Lab Data Result diagrams: 06/29/21 14:10 06/29/21 14:10 Labs: Lab Results 06/29/21 06/29/21 Range/Units 14:10 14:10 WBC 10.6 (4.5-11.0) X10^3/uL RBC 4.71 (4.0-5.2) X10^6/uL Hgb 11.6 L (12.0-16.0) g/dL Hct 35.8 L (36-46) % MCV 76.1 L (80-100) fL MCH 24.7 L (26-34) PG MCHC 32.4 (30-36) % RDW 14.8 (11.6-14.8) % Plt Count 423 H (150-400) X10^3/uL Neut % (Auto) 61.1 (50-75) % Lymph % (Auto) 30.1 (25-40) % [place] % (Auto) 7.8 (3-14) % Eos % (Auto) 0.4 L (2-4) % Baso % (Auto) 0.6 (0-2) % Neut # (Auto) 6500 (1615-5090) /uL Lymph # (Auto) 3200 (2538-0579) /uL [place] # (Auto) 800 (0-900) /uL Eos # (Auto) 0 (0-450) /uL Baso # (Auto) 100 (0-100) /uL Sodium 141 (137-145) mmol/L Potassium 3.0 L (3.4-5.1) mmol/L Chloride 105 (98-107) mmol/L Carbon Dioxide 27 (22-32) mmol/L BUN 14 (7-17) mg/dL Creatinine 0.83 (0.52-1.04) mg/dL Estimated GFR > 60.0 (>60) mL/min BUN/Creatinine Ratio 16.9 (6-22) Glucose 99 (70-100) mg/dL Calcium 9.4 (8.4-10.2) mg/dL Total Bilirubin 0.4 (0.2-1.3) mg/dL AST 28 (14-36) IU/L ALT 19 (<35) IU/L Alkaline Phosphatase 72 (38-126) U/L Troponin I < 0.012 (0.01-0.034) ng/mL Total Protein 9.0 H (6.3-8.2) g/dL Albumin 5.0 (3.5-5.0) g/dL Globulin 4.0 (1.7-4.1) g/dL Albumin/Globulin Ratio 1.3 (1.0-2.8) ECG Data Interpretation: 14:06 Supraventricular tachycardia at 183 14:06 Sinus tachycardia at 1:25 a.m. Normal intervals and axis No acute ischemic changes MDM Narrative Medical decision making narrative: 35-year-old woman with history of SVT with 4 hours of SVT beginning to become symptomatic. Converted with 6 mg of adenosine. Lab work is unremarkable including troponin level. She is safe for home discharge and will follow-up with her fagot heater helper. Discharge Plan Departure Patient Disposition: Home Clinical Impression: Supraventricular tachycardia Instructions: DI for Paroxysmal Supraventricular Tachycardia Activity Restrictions/Additional Instructions: Thank you for coming in today I am sorry that your very appropriate efforts to try to convert herself did not work. 6 mg of adenosine and elevating her legs was quite effective. Your blood work is entirely reassuring, there is no evidence of congestive heart failure or acute coronary syndrome or heart attack Please follow-up with your primary care physician or your fagot heater helper. If you have recurrent symptoms we are here to help. I wish you the best
[2021-06-29] MEDS: ADENOSINE 6 MG/2 ML VIAL 18 MG IV (14:23)
[2021-06-29 14:31] LABS: Add Manual Diff / Slide Review NO; Basophils Absolute Auto 100 /uL (0-100); Basophils Percent Auto 0.6 % (0-2); Eosinophils Absolute Auto 0 /uL (0-450); Eosinophils Percent Auto 0.4 % (2-4); Hematocrit 35.8 % (36-46); Hemoglobin 11.6 g/dL (12.0-16.0); Lymphocytes Absolute Auto 3200 /uL (1100-4500); Lymphocytes Percent Auto 30.1 % (25-40); Mean Corpuscular HGB Conc 32.4 % (30-36); Mean Corpuscular Hemoglobin 24.7 PG (26-34); Mean Corpuscular Volume 76.1 fL (80-100); Monocytes Absolute Auto 800 /uL (0-900); Monocytes Percent Auto 7.8 % (3-14); Neutrophils Absolute Auto 6500 /uL (1500-7000); Neutrophils Percent Auto 61.1 % (50-75); Platelet Count 423 X10^3/uL (150-400); Red Blood Cell Count 4.71 X10^6/uL (4.0-5.2); Red Cell Distribution Width 14.8 % (11.6-14.8); White Blood Cell Count 10.6 X10^3/uL (4.5-11.0)
--- NOTE | 2021-06-29 14:34 | PC.NURSE ---
Pt presented to triage with HR 200, SOB, SAW FILER, generalized weakness and drowsiness. 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 states she has been feeling palpitations and knew she was in SVT since about 10am this morning and tried valsalva maneuvers with no conversion. Pt has been cardioverted in the past, has never had an ablation and takes no blood thinners. uses a vessel slag worker in [place] that she has not recently seen. Pt was immediately taken to rm 10 in the ED, Dr Villafuerte made aware, Pt was placed on cardiac monitoring, IV placed and labs drawn, RN at bedside for EKG, and pt given 6mg adenosine with conversion to ST @ 113-118. repeat EKG obtained. Pt states she is feeling better. given warm blanket.
[2021-06-29 14:44] LABS: Alanine Aminotransferase 19 IU/L (<35); Albumin Globulin Ratio 1.3 (1.0-2.8); Alkaline Phosphatase 72 U/L (38-126); Aspartate Aminotransferase 28 IU/L (14-36); BUN Creatinine Ratio 16.9 (6-22); Bilirubin Total 0.4 mg/dL (0.2-1.3); Blood Urea Nitrogen 14 mg/dL (7-17); Calcium 9.4 mg/dL (8.4-10.2); Carbon Dioxide 27 mmol/L (22-32); Chloride 105 mmol/L (98-107); Estimated Glomerular Filt Rate > 60.0 mL/min (>60); Glucose 99 mg/dL (70-100); HEMOLYSIS < 15 (0-50); Sodium 141 mmol/L (137-145)
[2021-06-29 14:56] LABS: Troponin I < 0.012 ng/mL (0.01-0.034)
== END 2021-06-29 17:13 | disposition home or self-care (01) ==
PROVIDERS: Emergency Provider Emergency Medicine
DX: I47.1 Supraventricular tachycardia (principal)
CPT/HCPCS: 36415; 80053; 84484; 85025; 93005; 99284; J0153

== ENCOUNTER 2021-12-12 21:35 | Emergency (ER) | payer OTHER, SELFPAY ==
[2021-12-12 21:41] VITALS: BP 126/75; PULSE 110; RESP 20; TEMP 36.6; O2SAT 100; BMI 18.0
[2021-12-12 22:03] LABS: Ictotest Urine Positive (Negative)
[2021-12-12 22:09] LABS: Bacteria Urine Many (>30); Culture Indicated Urine Specimen Cultured; RBC Urine 0-1/HPF (0-5/HPF); Squamous Epithelial Cell Urine 1-5 /HPF (0-5/HPF); WBC Urine 30-100/HPF (0-5/HPF)
--- NOTE | 2021-12-12 23:30 | ED_ITS ---
HPI - General Adult General Chief complaint: Urogenital-Female Stated complaint: KIDNEY INFECTION Time Seen by Provider: 12/12/21 22:35 Source: patient Mode of arrival: Ambulatory Limitations: no limitations History of Present Illness HPI narrative: Somewhat difficult to obtain HPI review of systems from the patient as she did not seem to want to be involved in the history taking although she reports urinary frequency and burning and now having left flank pain for the past couple days. Had some nausea but no vomiting. Related Data Previous Rx's Medication Instructions Recorded ondansetron 4 mg disintegrating 4 mg PO Q6H PRN nausea and 12/13/21 tablet vomiting #10 tabs sulfamethoxazole 400 1 tab PO BID 14 days #28 tabs 12/13/21 mg-trimethoprim 80 mg tablet (Bactrim) Allergies Allergy/AdvReac Type Severity Reaction Status Date / Time No Known Drug Allergies Allergy Verified 08/04/19 21:38 Review of Systems Constitutional Constitutional: Reports system reviewed and no additional complaints, except as documented Genitourinary Genitourinary: Reports system reviewed and no additional complaints, except as documented Musculoskeletal Musculoskeletal: Reports system reviewed and no additional complaints, except as documented Hematologic/Lymphatic On Anticoagulants: No Patient History Medical History Paroxysmal supraventricular tachycardia Surgical History No significant past surgical history Social History Smoking Status: Never smoker Smoking Status: Never smoker alcohol intake frequency: other Alcohol type: beer Substance Use Type: does not use Exam Initial Vital Signs Initial Vital Signs: Vital Signs Temperature 98 F 12/12/21 21:41 Pulse Rate 110 H 12/12/21 21:41 Respiratory Rate 20 12/12/21 21:41 Blood Pressure 126/75 12/12/21 21:41 Pulse Oximetry 100 12/12/21 21:41 Oxygen Delivery Method 12/12/21 21:41 Const General: comfortable HENMT Head: normal to inspection and normocephalic Resp Effort & Inspection: normal respiratory effort Cardio Rate: tachycardic Back/Spine/Pelvis Back: CVA tenderness left Course Orders Ordered: ED Orders 12/12/21 21:58 Ictotest Urine Stat Urine Culture Stat Urine Microscopic Stat Discontinued Medications Ondansetron HCl (Ondansetron 4 Mg Odt Prepack) 1 bottle MISC SEEINSTR ONE Stop: 12/13/21 00:07 Last Admin: 12/13/21 00:20 Dose: 1 bottle Documented By: HAILE Trimethoprim/Sulfamethoxazole (Trimeth/Sulfa 160/800 (Ds) Tablet) 1 tab PO NOW ONE Stop: 12/12/21 23:31 Last Admin: 12/12/21 23:38 Dose: 1 tab Documented By: AP Vital Signs Vital signs: Vital Signs - 8 hr 12/12/21 21:41 12/13/21 00:15 Temperature 98 F Pulse Rate 110 H 100 H Respiratory Rate 20 18 Blood Pressure 126/75 129/79 Pulse Oximetry 100 97 Oxygen Delivery Method Room Air Room Air Medical Decision Making Lab Data Labs: Lab Results 12/12/21 Range/Units 21:58 Ur Bilirubin Confirm Positive H (Negative) Urine RBC 0-1/hpf (0-5/HPF) Urine WBC 30-100/hpf H (0-5/HPF) Ur Squamous Epith Cells 1-5 /hpf (0-5/HPF) Urine Bacteria Many (>30) H (None) Ur Culture Indicated? Specimen cultured Point of Care Testing Test Results Negative Urine Dip Bedside Urine Glucose Negative Bedside Urine Bilirubin + 1 Urine Specific [place] 1.015 Bedside Urine Occult Blood +/- Bedside Urine pH 7.0 Bedside Urine Protein ++ 100 Bedside Urine Urobilinogen - Negative Bedside Urine Nitrite - Negative Bedside Urine Leukocytes ++ 125 Esterase Point of care testing: Point of Care Testing Test Results Negative Urine Dip Bedside Urine Glucose Negative Bedside Urine Bilirubin + 1 Urine Specific [place] 1.015 Bedside Urine Occult Blood +/- Bedside Urine pH 7.0 Bedside Urine Protein ++ 100 Bedside Urine Urobilinogen - Negative Bedside Urine Nitrite - Negative Bedside Urine Leukocytes ++ 125 Esterase MDM Narrative Medical decision making narrative: Nontoxic. Patient does have leukocyte esterase and bacteria and white blood cells in her urinalysis. Given her presenting symptoms will treat her as pyelonephritis. She was given a dose of antibiotics here and she tolerated it without vomiting. Was sent home with a prescription for the remainder of the course which was sent to the pharmacy of her choice. No indication for admission the hospital she is tolerating oral intake. She was given strict return precautions. She expressed understanding and agreement. Discharge Plan Departure Patient Disposition: Home Clinical Impression: Pyelonephritis Instructions: DI for Kidney Infection Activity Restrictions/Additional Instructions: You were given a 1st dose of antibiotics here in the ER. Your next dose will be the morning of 12/13/21. They were electronically transmitted to the pharmacy of your choice. Use the nausea medication as needed. Be sure to increase your fluid intake. Return to the emergency department for any new or worsening symptoms. Prescriptions: New ondansetron 4 mg tablet,disintegrating 4 mg PO Q6H PRN (Reason: nausea and vomiting) Qty: 10 0RF sulfamethoxazole-trimethoprim [Bactrim] 400-80 mg tablet 1 tab PO BID 14 Days Qty: 28 0RF Visit Report Forms: Patient Portal/API
[2021-12-12] MEDS: TRIMETH/SULFA 160/800 (DS) TABLET 1 TAB PO (23:38)
[2021-12-13 00:15] VITALS: BP 129/79; PULSE 100; RESP 18; O2SAT 97
[2021-12-13] MEDS: ONDANSETRON 4 MG ODT PREPACK 1 BOTTLE MISC (00:20)
== END 2021-12-13 00:36 | disposition home or self-care (01) ==
PROVIDERS: Emergency Provider Emergency Medicine
DX: N12 Tubulo-interstitial nephritis, not specified as acute or chronic (principal); R11.0 Nausea
CPT/HCPCS: 81003; 81015; 81025; 87077; 87086; 99283